=== PATIENT | male | born 1995 | race Caucasian/White ===

== ENCOUNTER → 2018-03-06 | Outpatient (REF) | payer OTHER | LOC: M LAB REF 16:36 | PROVIDERS: ATTEND Physician Assistant | DX: J02.9 Acute pharyngitis, unspecified (principal) ==

== ENCOUNTER 2020-07-16 10:56 | Emergency (ER) | payer OTHER ==
[~2020-07-16] VITALS: Ht 165.1 cm; Wt 54.0 kg
[2020-07-16] MEDS ORDERED: SING5CHW23 PO (11:24)
--- NOTE | 2020-07-16 12:07 | REP ---
INDICATION: trauma. COMPARISON: None TECHNIQUE: Four views including frontal view of the chest FINDINGS: Multiple views of the right ribs show no fracture or osseous lesion. The accompanying frontal view of the chest shows no cardiomegaly, infiltrates, effusions, or pneumothoraces. IMPRESSION: Negative right rib series. <Electronically signed by Gabino Ivory > 07/16/20 [id number]
[2020-07-16 13:01] VITALS: BP 117/66
== END 2020-07-16 13:02 | disposition home or self-care (01) ==
LOC: M ED 10:56
DX: S20.211A Contusion of right front wall of thorax, initial encounter (principal); W22.09XA Striking against other stationary object, initial encounter; Y92.59 Other trade areas as the place of occurrence of the external cause; Y93.89 Activity, other specified; Y99.8 Other external cause status